=== PATIENT | male | born 1965 | race Caucasian/White ===

== ENCOUNTER → 2016-12-12 | Outpatient (CLI) | payer OTHER ==
[~2016-12-12] MED LIST: ASPI81TA28 PO; ATOR-24 PO; BACL10TA PO; CHOL100027 PO; HYDR-5688 PO; PRLSR20 PO; blood pressure pill; tumeric PO
[2016-12-12 12:59] LABS: BENZODIAZEPINE, URINE NEG (NEG); COCAINE,URINE NEG (NEG); PHENCYCLIDINE, URINE NEG (NEG)
[2016-12-12 13:18] LABS: ALT/SGPT 34 U/L (12-78); AST/SGOT 25 U/L (15-37); BLOOD UREA NITROGEN 19 mg/dl (7-18); BUN/CREATININE RATIO 14.9 (10-20); CALCIUM 9.4 mg/dl (8.5-10.1); CARBON DIOXIDE 27 mmol/L (21-32); CHLORIDE 107 mmol/L (98-107); GLUCOSE 88 mg/dl (70-99); POTASSIUM 4.1 mmol/L (3.5-5.1); SODIUM 142 mmol/L (136-145)
[2016-12-12 13:21] LABS: ALB/GLOB RATIO 1.3 (0.9-2); ALKALINE PHOSPHATASE 62 U/L (45-117); CHOLESTEROL 173 mg/dl (0-200); CHOLESTEROL/HDL RATIO 3.1; HDL CHOLESTEROL 55 mg/dl; LDL CHOLESTEROL CALCULATED 103 mg/dl; TRIGLYCERIDES 75 mg/dl (0-150); VERY LOW DENSITY LIPOPROT CALC 15 mg/dl
[2016-12-14 15:23] LABS: COD UR NEGATIVE NG/ML (CUTOFF=50); HYDROCOD UR 1030 NG/ML (CUTOFF=50); HYDROMOR UR 536 NG/ML (CUTOFF=50); MORPHINE UR NEGATIVE NG/ML (CUTOFF=50); NORHYDROCODONE CONF UR 1030 NG/ML (CUTOFF=50); OXYMORPH UR NEGATIVE NG/ML (CUTOFF=50)
== END | disposition home or self-care (01) ==
LOC: C.LABPBG 08:20
PROVIDERS: ATTEND Family Medicine
DX: E78.5 Hyperlipidemia, unspecified (principal); I10 Essential (primary) hypertension; Z51.81 Encounter for therapeutic drug level monitoring; Z79.899 Other long term (current) drug therapy

== ENCOUNTER → 2017-08-06 | Outpatient (CLI) | payer OTHER ==
[2017-08-06 13:24] LABS: ALT/SGPT 48 U/L (12-78); AST/SGOT 35 U/L (15-37); BLOOD UREA NITROGEN 14 mg/dl (7-18); BUN/CREATININE RATIO 12.1 (10-20); CALCIUM 9.4 mg/dl (8.5-10.1); CARBON DIOXIDE 28 mmol/L (21-32); CHLORIDE 105 mmol/L (98-107); CHOLESTEROL 184 mg/dl (0-200); CREATININE 1.18 mg/dl (0.60-1.40); GLUCOSE 87 mg/dl (70-99); POTASSIUM 3.8 mmol/L (3.5-5.1); SODIUM 140 mmol/L (136-145)
[2017-08-06 13:30] LABS: ALB/GLOB RATIO 1.2 (0.9-2); ALKALINE PHOSPHATASE 54 U/L (45-117); CHOLESTEROL/HDL RATIO 2.9; HDL CHOLESTEROL 64 mg/dl; LDL CHOLESTEROL CALCULATED 100 mg/dl; TRIGLYCERIDES 99 mg/dl (0-150); VERY LOW DENSITY LIPOPROT CALC 20 mg/dl
== END | disposition home or self-care (01) ==
LOC: C.LABPBG 07:42
PROVIDERS: ATTEND Family Medicine
DX: E78.5 Hyperlipidemia, unspecified (principal); I10 Essential (primary) hypertension; M51.16 Intervertebral disc disorders with radiculopathy, lumbar region; M48.061 Spinal stenosis, lumbar region without neurogenic claudication

== ENCOUNTER → 2017-10-10 | Outpatient (CLI) | payer OTHER ==
[~2017-10-10] MED LIST changes: +ACET-1256 PO; +IBUP-103 PO
--- NOTE | 2017-10-10 07:56 | DIAGNOSTIC IMAGING REPORT ---
LUMBAR SPINE W/O CONTRAST CLINICAL HISTORY: 52 years-old Male with LUMBAR DISC DISEASE W/ RADICULOPATHY, STENOSIS. Chronic lumbar back pain with reticular symptoms. Pain is most pronounced in the lower back, right leg and right hip with associated numbness COMPARISON: Lumbar spine MRI 12/23/2014 TECHNIQUE: Multiplanar, multi sequence MRI of the lumbar spine was performed without intravenous contrast. FINDINGS: There is no focal bone marrow edema, acute fracture or subluxation. Paraspinal soft tissues, imaged intra-abdominal and intrapelvic structures demonstrate no acute abnormality. No aortic aneurysm or pathologic adenopathy identified. Multilevel discogenic degenerative changes and facet arthrosis noted as below. There is mild straightening of the normal lumbar lordosis. Signal within the imaged spinal cord is within normal limits. Conus medullaris terminates at T12-L1. Prior left hemilaminectomy at L4 and L5 T12-L1: No central canal or neural foraminal stenosis. L1-L2: Mild intervertebral disc space narrowing with posterior spondylitic spurring and small circumferential disc bulge. Severe facet arthrosis and ligamentum flavum thickening also noted at this interspace which results in mild to moderate central canal narrowing with AP dimension of the thecal sac measuring 8 mm, worsened from prior. These changes cause no significant foraminal narrowing. L2-L3: Moderate intervertebral disc space narrowing with mild endplate osteophytic spurring and moderate facet arthrosis. Small posterior disc bulge flattens the ventral thecal sac. No significant central canal narrowing. There is mild inferior foraminal stenosis bilaterally which appears to slightly progressed. L3-L4: Moderate intervertebral disc space narrowing with endplate spurring and small circumferential annular disc bulge with mild to moderate facet arthrosis. No central canal narrowing. There is moderate left and mild to moderate right foraminal narrowing. L4-L5: Mild intervertebral disc space narrowing with endplate spurring and minimal posterior disc bulge. Disc bulge favoring the right far lateral region as seen on image 22 series 6 appears to abut the exiting right L4 nerve root. Moderate facet arthrosis is also noted. Severe left and mild right foraminal narrowing appear unchanged. L5-S1: Mild intervertebral disc space narrowing with endplate spurring and mild to moderate facet arthrosis with mild endplate spurring. Moderate to severe left and moderate right foraminal narrowing appear unchanged. IMPRESSION: 1. Progressively worsened degenerative changes at L1-L2 results in mild to moderate central canal narrowing. 2. Varying degrees of foraminal narrowing are again seen at the L3-L4 through L5-S1 levels as detailed above. 3. Prior left hemilaminectomy at L4 and L5. 4. No focal bone marrow edema, fracture or subluxation. 5. At L4-L5, disc bulge favoring the right far lateral extraforaminal distribution abuts the exiting right L4 nerve root. The above report was generated using voice recognition software. It may contain grammatical, syntax or spelling errors. Electronically signed by: Hiram Hardy M.D. 10/10/2017 7:55 AM Dictated Date/Time: 10/10/2017 7:37 AM
== END | disposition home or self-care (01) ==
LOC: C.MRIBC 06:43
PROVIDERS: ATTEND Family Medicine
DX: M51.16 Intervertebral disc disorders with radiculopathy, lumbar region (principal); M48.061 Spinal stenosis, lumbar region without neurogenic claudication; M51.36 Other intervertebral disc degeneration, lumbar region

== ENCOUNTER → 2018-01-03 | Outpatient (CLI) | payer OTHER ==
[~2018-01-03] MED LIST changes: +AGILEASE PO; -ATOR-24 PO; -CHOL100027 PO; +CHOL20007 PO; +GABA-113 PO; +LISI-461 PO; +NORT10CA2 PO; -blood pressure pill; +magnesium PO; -tumeric PO
--- NOTE | 2018-01-03 12:29 | DIAGNOSTIC IMAGING REPORT ---
L-SPINE MIN 4 VIEWS ROUTINE HISTORY: Pain SPINAL STENOSIS COMPARISON: None. FINDINGS: There is no fracture. No subluxation. Considerable degenerative disc change throughout. No evidence for subluxation with the patient in flexion or extension. IMPRESSION: Considerable degenerative disc change throughout with moderate anterior osteophyte formation at L3-L4. No evidence for compression deformity. No evidence for subluxation with positional variation. The above report was generated using voice recognition software. It may contain grammatical, syntax or spelling errors. Electronically signed by: Joaquín Tate M.D. 01/03/2018 12:27 PM Dictated Date/Time: 01/03/2018 12:17 PM
== END | disposition home or self-care (01) ==
LOC: C.RADBC 11:55
PROVIDERS: ATTEND Physician Assistant Surgical
DX: M48.062 Spinal stenosis, lumbar region with neurogenic claudication (principal)

== ENCOUNTER → 2018-01-13 | Outpatient (CLI) | payer OTHER ==
[2018-01-13 17:09] LABS: ALBUMIN 3.9 gm/dl (3.4-5.0); ALT/SGPT 50 U/L (12-78); BLOOD UREA NITROGEN 19 mg/dl (7-18); CALCIUM 9.3 mg/dl (8.5-10.1); CARBON DIOXIDE 29 mmol/L (21-32); CREATININE 1.15 mg/dl (0.60-1.40); GLUCOSE 88 mg/dl (70-99); POTASSIUM 3.8 mmol/L (3.5-5.1); SODIUM 141 mmol/L (136-145)
[2018-01-13 17:12] LABS: ALKALINE PHOSPHATASE 50 U/L (45-117); AST/SGOT 30 U/L (15-37); TOTAL PROTEIN 7.4 gm/dl (6.4-8.2)
== END | disposition home or self-care (01) ==
LOC: C.LABPBG 15:43
PROVIDERS: ATTEND Physician Assistant
DX: Z01.818 Encounter for other preprocedural examination (principal)